=== PATIENT | female | born 1955 | race Two or more races ===

== ENCOUNTER 2019-09-11 09:03 | Outpatient (CLI) | payer OTHER ==
[~2019-09-11 09:03] MED LIST: METFORMIN HCL500 M3; PEPCID40 MG PO; PNEU16DI2; SIMVASTATIN20 MG; SYNTHROID75 MCG; TOPROL XL50 M1; ULTRACET PO; ZOFRAN4 MG PO
== END 2019-09-11 09:06 | disposition home or self-care (01) ==
LOC: SONOGRAMA 09:03 → MAMO-SONO 09:15
DX: C54.1 Malignant neoplasm of endometrium (principal)

== ENCOUNTER 2021-02-02 10:39 | Outpatient (CLI) | payer OTHER | END 2021-02-02 10:44 | disposition home or self-care (01) | LOC: SONOGRAMA 10:39 | PROVIDERS: ATTEND Obstetrics & Gynecology Gynecology | DX: N95.8 Other specified menopausal and perimenopausal disorders (principal); N84.0 Polyp of corpus uteri ==

== ENCOUNTER 2021-11-15 14:53 | Emergency (ER) | payer OTHER ==
[~2021-11-15] VITALS: Ht 160 cm; Wt 81.6 kg
[2021-11-15] MEDS ORDERED: COZAAR50 MG (15:10)
[2021-11-15] MEDS ORDERED: HYDROCHLOROTHIAZ1 GM (15:11)
[2021-11-15] MEDS ORDERED: CIPRO500 MG PO (16:23)
== END 2021-11-15 17:05 | disposition home or self-care (01) ==
LOC: ER 14:53
DX: S61.541A Puncture wound with foreign body of right wrist, initial encounter (principal); W55.01XA Bitten by cat, initial encounter; Y92.019 Unspecified place in single-family (private) house as the place of occurrence of the external cause

== ENCOUNTER 2025-05-19 10:47 | Outpatient (CLI) | payer OTHER ==
[~2025-05-19 10:47] MED LIST changes: +CIPRO500 MG PO; +COZAAR50 MG; +HYDROCHLOROTHIAZ1 GM
== END 2025-05-19 10:54 | disposition home or self-care (01) ==
LOC: SONOGRAMA 10:47
PROVIDERS: ATTEND General Practice
DX: N18.30 Chronic kidney disease, stage 3 unspecified (principal); R80.9 Proteinuria, unspecified; E11.65 Type 2 diabetes mellitus with hyperglycemia

== ENCOUNTER 2025-06-18 09:27 | Outpatient (CLI) | payer OTHER | END 2025-06-18 09:29 | disposition home or self-care (01) | LOC: MAMO-SONO 09:27 | PROVIDERS: ATTEND General Practice | DX: Z12.31 Encounter for screening mammogram for malignant neoplasm of breast (principal); Z12.39 Encounter for other screening for malignant neoplasm of breast ==